=== PATIENT | female | born 1945 | race Caucasian/White ===

== ENCOUNTER 2024-11-10 08:50 | Observation (INO) | payer MEDICARE ==
[2024-11-10 09:21] LABS: #Basophils 0.03 10x3/uL (0.0-0.2); #Eosinophils 0.08 10x3/uL (0.0-0.7); #Monocytes 1.46 10x3/uL (0.11-0.59); #Neutrophils 7.72 10x3/uL (1.40-6.50); %Basophils 0.3 % (0.0-1.0); %Eosinophils 0.7 % (0.0-10.0); %Lymphocytes 16.1 % (21.0-51.0); %Monocytes 13.1 % (0.0-10.0); %Neutrophils 69.4 % (42.0-75.0); Hematocrit 41.0 % (36.0-47.0); Hemoglobin 14.0 g/dL (12.0-16.0); Mean Corpuscular Hemoglobin 32.9 pg (27.0-31.0); Mean Corpuscular Volume 96.2 fL (78.0-98.0); Platelet Count 153 10x3/uL (130-400); Red Blood Cell (RBC) Count 4.26 mill/uL (4.20-5.40); White Blood Cell (WBC) Count 11.12 10x3/uL (4.8-10.8)
[2024-11-10 10:03] LABS: ALT (SGPT) 10 U/L (Less than 34); AST (SGOT) 26 U/L (11-34); Albumin 4.1 g/dL (3.1-4.5); Alkaline Phosphatase 55 U/L (40-110); Anion Gap 12 mmol/L (10-20); BUN (Urea Nitrogen) 16 mg/dL (9.8-20.1); Bilirubin, Total 2.3 mg/dL (0.3-1.2); Calc. Creatinine Clearance 0 mL/min (70-130); Calcium 9.6 mg/dL (7.8-10.44); Carbon Dioxide 25 mmol/L (23-31); Chloride 105 mmol/L (98-107); Globulin 3.3 g/dL (2.4-3.5); Glucose 94 mg/dL (83-110); Lipase 14 U/L (8-78); Potassium 3.8 mmol/L (3.5-5.1); Sodium 138 mmol/L (136-145)
[2024-11-10 11:47] LABS: Bacteria/HPF None Seen HPF (None Seen); CAUTI Indications for Culture Dysuria,urgency,freq; Glucose, Urine (Dipstick) Normal (Negative); Leukocyte 75 Leu/uL (Negative); Protein, Urine (Dipstick) Negative (Neg-Trace); RBC/HPF 0-3 HPF (0-3); Specific Gravity, Urine 1.044 (1.002-1.036); WBC/HPF 0-3 HPF (0-3)
[2024-11-10 11:49] LABS: Urine Culture Reflex No No
[2024-11-10] MEDS ORDERED: Iopamidol-370 76% 500 ML MDV (1 ML CHARGE) ONE (12:19)
[2024-11-10] MEDS ORDERED: Pantoprazole 40 MG VIAL ONE (13:25)
[2024-11-10] MEDS ORDERED: Acetaminophen 500 MG TAB ONE (13:25)
[2024-11-10] MEDS ORDERED: Ciprofloxacin Lactate D5W 400 mg (200 mL) BAG ONE (13:38)
[2024-11-10] MEDS ORDERED: metroNIDAZOLE 500 MG (100 mL) BAG ONE (13:38)
[2024-11-10] MEDS ORDERED: Ondansetron PF 4 MG/2 ML Vial ONE (13:38)
[2024-11-10 15:50] VITALS: BMI 25.9
[2024-11-10] MEDS: Famotidine/PF 20 mg/2ml Vial SLOW IVP SCH (20:59)
[2024-11-10] MEDS: Ondansetron PF 4 MG/2 ML Vial IVP PRN (22:31)
[2024-11-10] MEDS: Calcium Carbonate 500 MG ChewTAB PO PRN (22:31)
[2024-11-11] MEDS: Ciprofloxacin Lactate/D5W 400 MG in Premix 1 BAG IVPB SCH (02:04)
[2024-11-11] MEDS: Fioricet 325/50/40 mg Tablet PO SCH (05:28)
[2024-11-11 05:45] LABS: #Basophils Less than 0.03 10x3/uL (0.0-0.2); #Eosinophils 0.19 10x3/uL (0.0-0.7); #Monocytes 0.97 10x3/uL (0.11-0.59); #Neutrophils 5.30 10x3/uL (1.40-6.50); %Basophils 0.3 % (0.0-1.0); %Eosinophils 2.4 % (0.0-10.0); %Lymphocytes 17.5 % (21.0-51.0); %Monocytes 12.3 % (0.0-10.0); %Neutrophils 67.2 % (42.0-75.0); Hematocrit 35.7 % (36.0-47.0); Hemoglobin 11.7 g/dL (12.0-16.0); Mean Corpuscular Hemoglobin 32.9 pg (27.0-31.0); Mean Corpuscular Volume 100.3 fL (78.0-98.0); Platelet Count 117 10x3/uL (130-400); Red Blood Cell (RBC) Count 3.56 mill/uL (4.20-5.40); White Blood Cell (WBC) Count 7.88 10x3/uL (4.8-10.8)
[2024-11-11 06:00] LABS: ALT (SGPT) 9 U/L (Less than 34); AST (SGOT) 13 U/L (11-34); Albumin 3.3 g/dL (3.1-4.5); Alkaline Phosphatase 44 U/L (40-110); Anion Gap 8 mmol/L (10-20); BUN (Urea Nitrogen) 9 mg/dL (9.8-20.1); Bilirubin, Total 1.9 mg/dL (0.3-1.2); Calc. Creatinine Clearance 70 mL/min (70-130); Calcium 8.7 mg/dL (7.8-10.44); Carbon Dioxide 26 mmol/L (23-31); Chloride 106 mmol/L (98-107); Globulin 2.8 g/dL (2.4-3.5); Glucose 88 mg/dL (83-110); Potassium 4.0 mmol/L (3.5-5.1); Sodium 136 mmol/L (136-145)
[2024-11-11 07:54] VITALS: BP 105/61; TEMP 97.5
== END 2024-11-11 14:50 | disposition home or self-care (01) ==
LOC: ERS 08:50 → SUATTDRO 08:50 → T4-B 13:48
PROVIDERS: ADMIT Internal Medicine; ATTEND Internal Medicine
DX: K52.9 Noninfective gastroenteritis and colitis, unspecified (principal); I71.43 Infrarenal abdominal aortic aneurysm, without rupture; N83.8 Other noninflammatory disorders of ovary, fallopian tube and broad ligament; E03.9 Hypothyroidism, unspecified; Z79.890 Hormone replacement therapy
CPT/HCPCS: 74177; 80053 ×2; 81001; 83690; 84145; 85025 ×2; 86141; 86850; 86900; 86901; 93005; 96365; 96368; 96375 ×2; 96376 ×2; 99285; G0378 ×3; J0744 ×2; J1308 ×2; J2270; J2405; J2470; J7030 ×2; Q9967; 36415; 82274

== ENCOUNTER 2025-02-10 11:32 | Emergency (ER) | payer MEDICARE ==
[2025-02-10 12:51] LABS: #Basophils 0.05 10x3/uL (0.0-0.2); #Eosinophils 0.15 10x3/uL (0.0-0.7); #Monocytes 0.72 10x3/uL (0.11-0.59); #Neutrophils 3.84 10x3/uL (1.40-6.50); %Basophils 0.8 % (0.0-1.0); %Eosinophils 2.3 % (0.0-10.0); %Lymphocytes 25.5 % (21.0-51.0); %Monocytes 11.2 % (0.0-10.0); %Neutrophils 59.9 % (42.0-75.0); Hematocrit 42.6 % (36.0-47.0); Hemoglobin 14.2 g/dL (12.0-16.0); Mean Corpuscular Hemoglobin 32.6 pg (27.0-31.0); Mean Corpuscular Volume 97.9 fL (78.0-98.0); Platelet Count 154 10x3/uL (130-400); Red Blood Cell (RBC) Count 4.35 mill/uL (4.20-5.40); White Blood Cell (WBC) Count 6.42 10x3/uL (4.8-10.8)
[2025-02-10 13:08] LABS: ALT (SGPT) 13 U/L (Less than 34); AST (SGOT) 27 U/L (11-34); Albumin 4.0 g/dL (3.1-4.5); Alkaline Phosphatase 62 U/L (40-110); Anion Gap 15 mmol/L (10-20); BUN (Urea Nitrogen) 16 mg/dL (9.8-20.1); Bilirubin, Total 1.4 mg/dL (0.3-1.2); CK (CPK) 58 U/L (29-168); Calc. Creatinine Clearance 0 mL/min (70-130); Calcium 9.8 mg/dL (7.8-10.44); Carbon Dioxide 21 mmol/L (23-31); Chloride 109 mmol/L (98-107); Globulin 3.5 g/dL (2.4-3.5); Glucose 89 mg/dL (83-110); Magnesium 2.3 mg/dL (1.6-2.6); Potassium 4.3 mmol/L (3.5-5.1); Sodium 141 mmol/L (136-145)
== END 2025-02-10 16:30 | disposition home or self-care (01) ==
LOC: ERS 11:32
DX: M48.061 Spinal stenosis, lumbar region without neurogenic claudication (principal); E03.9 Hypothyroidism, unspecified; Z79.890 Hormone replacement therapy; Z55.6 Problems related to health literacy
CPT/HCPCS: 72131; 72148; 80053; 82550; 83735; 84443; 85025